=== PATIENT | female | born 1950 | race Caucasian/White ===

== ENCOUNTER 2017-09-16 12:15 | Emergency (ER) | payer MEDICARE, OTHER ==
[~2017-09-16] VITALS: Ht 167.6 cm; Wt 80.4 kg
[2017-09-16 12:34] VITALS: BP 125/84
[2017-09-16] MEDS ORDERED: acetaminophen 325mg tablet PO ONE (13:10)
[2017-09-16] MEDS ORDERED: ibuprofen tablet 400 MG TABLET PO ONE (13:10)
== END 2017-09-16 14:20 | disposition home or self-care (01) ==
LOC: ER 12:16
DX: M79.661 Pain in right lower leg (principal); X58.XXXA Exposure to other specified factors, initial encounter; Y93.02 Activity, running; Y92.89 Other specified places as the place of occurrence of the external cause; Y99.8 Other external cause status
CPT/HCPCS: 29515; 99283